=== PATIENT | male | born 1955 | race Caucasian/White ===

== ENCOUNTER 2018-10-31 19:31 | Emergency (ER) | payer OTHER ==
[~2018-10-31] VITALS: Ht 180.3 cm; Wt 88.5 kg
[2018-10-31] MEDS ORDERED: TAPAZOLE5 M1 (19:45)
[2018-10-31] MEDS ORDERED: LOTREL 5-20 MG1 CAP (19:45)
[2018-10-31] MEDS ORDERED: PREDNISONE5 MG/1 ML (19:47)
== END 2018-10-31 21:59 | disposition home or self-care (01) ==
LOC: ER 19:31
DX: R20.2 Paresthesia of skin (principal); I73.9 Peripheral vascular disease, unspecified

== ENCOUNTER 2019-12-02 10:45 | Outpatient (CLI) | payer OTHER ==
[~2019-12-02 10:45] MED LIST: LOTREL 5-20 MG1 CAP; PREDNISONE5 MG/1 ML; TAPAZOLE5 M1
== END 2019-12-02 10:52 | disposition home or self-care (01) ==
LOC: SONOGRAMA 10:45
PROVIDERS: ATTEND Pathology Anatomic Pathology & Clinical Pathology
DX: E04.2 Nontoxic multinodular goiter (principal)